=== PATIENT | female | born 2000 | race African-American/Black ===

== ENCOUNTER 2023-08-17 15:06 | Emergency (ER) | payer MEDICAID ==
[~2023-08-17] VITALS: Ht 172.7 cm; Wt 84.0 kg
[2023-08-17 15:13] VITALS: O2SAT 100
[2023-08-17 15:47] LABS: BASOPHILS % 0.4 % (0.0-2.0); HEMATOCRIT. 37.6 % (36.0-48.0); HEMOGLOBIN. 12.7 g/dL (12.0-16.0); LYMPHOCYTES % 22.9 % (20.0-50.0); MEAN CORPUSCULAR HEMOGLOBIN 28.3 pg (28.0-32.0); MEAN CORPUSCULAR HGB CONC 33.7 g/dL (31.0-37.0); MEAN PLATELET VOLUME 9.1 fl (7.4-10.4); MONOCYTES % 5.8 % (2.0-8.0); NEUTROPHILS % 70.9 % (40.0-76.0); PLATELET 204 x1000/uL (130-400); RED BLOOD CELL COUNT 4.48 mill/uL (4.2-5.4); RED CELL DISTRIBUTION WIDTH 14.7 % (11.6-14.6); WHITE BLOOD COUNT 8.3 x1000/uL (4.5-11.0)
[2023-08-17 15:51] LABS: CHLORIDE 110 mEq/L (98-107); POTASSIUM 3.9 mEq/L (3.5-5.1); SODIUM 142 mEq/L (136-145)
[2023-08-17 15:52] LABS: CARBON DIOXIDE 26 mEq/L (21-32)
[2023-08-17 15:53] LABS: CALCIUM 9.6 mg/dL (8.7-10.4)
[2023-08-17 15:57] LABS: GLUCOSE 95 mg/dL (70-105)
[2023-08-17 15:58] LABS: UREA NITROGEN BLOOD 10 mg/dL (9-23)
[2023-08-17 15:59] LABS: ALANINE AMINOTRANSFERASE 10 IU/L (10-49); ALBUMIN 4.6 g/dL (3.2-4.8); ASPARTATE AMINOTRANSFERASE 18 IU/L (<34)
[2023-08-17 16:00] LABS: BILIRUBIN TOTAL 0.3 mg/dL (0.1-1.0); PROTEIN TOTAL 6.9 g/dL (6.0-8.3)
[2023-08-17 16:06] LABS: BILIRUBIN DIRECT < 0.1 mg/dL (<=3.0); TROPONIN I HIGH SENSITIVITY < 4 ng/L (3.0-34)
[2023-08-17 16:51] VITALS: BP 121/84; PULSE 113; RESP 16; TEMP 98.7
== END 2023-08-17 16:54 | disposition home or self-care (01) ==
LOC: ER 15:06
DX: R00.0 Tachycardia, unspecified (principal); F20.9 Schizophrenia, unspecified; F41.9 Anxiety disorder, unspecified
CPT/HCPCS: 36415; 71045; 80048; 80076; 84484; 85025; 85379; 93005; 99285